=== PATIENT | male | born 1945 | race Caucasian/White ===

== ENCOUNTER 2016-11-29 13:49 | Inpatient (IN) | payer OTHER, MEDICARE ==
[~2016-11-29] VITALS: Ht 195.6 cm; Wt 145.2 kg
--- NOTE | 2016-11-29 13:54 | NUR ---
PER PT DIARRHEA ALL NIGHT DWAIN AFTER EATING UNCOOKED PAROIGES, DIARRHEA ALL NIGHT, SAT ABLE TO EAT SOME EGGS MASHED POTATOES BUT CONT TO FEEL WEAK AND DIZZY, TODAY KELLY PO GATORADE BUT STILL DIZZY, NO FURTHER DIARRHEA
--- NOTE | 2016-11-29 13:57 | NUR ---
PT RESTING ON STRETCHER, FAMILY REMAINS AT BEDSIDE. AWAITING PROVIDER EVAL.
--- NOTE | 2016-11-29 14:22 | NUR ---
BLOODWORK, BLUE,CHAPMAN,LAV,SST, AND PINK TOP TUBES SENT TO LAB.
[2016-11-29 14:27] LABS: ABSOLUTE BASOPHIL COUNT 0.1 /CUMM (0.0-0.2); ABSOLUTE EOSINOPHIL COUNT 0.1 /CUMM (0.0-0.7); ABSOLUTE GRANULOCYTE CT 7.5 /CUMM (1.4-6.5); ABSOLUTE LYMPH COUNT 1.8 /CUMM (1.2-3.4); ABSOLUTE MONOCYTE COUNT 0.7 /CUMM (0.10-0.60); BASOPHIL % 0.7 % (0.0-2.0); EOSINOPHIL % 0.6 % (0-5); GRANULOCYTE % 73.9 % (42.2-75.2); HEMATOCRIT 25.1 % (42-52); MEAN CORPUSCULAR HGB 29.1 PG (27.0-31.0); MEAN CORPUSCULAR HGB CONC 32.9 G/DL (33.0-37.0); MEAN CORPUSCULAR VOLUME 88.4 FL (80.0-94.0); MEAN PLATELET VOLUME 8.5 FL (7.4-10.4); PLATELET COUNT 282 /CUMM (130-400); RBC DISTRIBUTION WIDTH 15.3 % (11.5-14.5); RED BLOOD CELL CT 2.84 /CUMM (4.70-6.10); WHITE BLOOD CELL COUNT 10.1 /CUMM (4.8-10.8)
--- NOTE | 2016-11-29 14:41 | NUR ---
DR LEIVA IN TO EVAL AT THIS TIME.
--- NOTE | 2016-11-29 14:56 | NUR ---
DR LEIVA IN TO SPEAK WITH PT AND FAMILY, PLAN TO ADMIT. IV PROTONIX 40MG INFUSING WITHOUT DIFFICULTY AT THIS TIME.
[2016-11-29] MEDS ORDERED: LISINOPRIL-HCT1 EACH PO (15:02)
[2016-11-29] MEDS ORDERED: LEVOTHYROXINE112 MCG PO (15:03)
[2016-11-29] MEDS ORDERED: COLACE100 M1 PO (15:03)
[2016-11-29] MEDS ORDERED: ASPIRIN81 M4 PO (15:04)
[2016-11-29] MEDS ORDERED: CIALIS20 M1 PO (15:04)
--- NOTE | 2016-11-29 15:04 | ED GI/GU/ABDOMINAL COMPLAINT ---
History of Present Illness General Chief Complaint: General Adult Stated Complaint: DIARRHEA Source: patient, family, old records Exam Limitations: no limitations Vital Signs & Intake/Output Vital Signs & Intake/Output Vital Signs Date Time Temp Pulse Resp B/P Pulse O2 O2 Flow FiO2 Ox Delivery Rate 11/29 1456 97.0 103 20 127/60 11/29 1423 97 Room Air Room Air 11/29 1355 97.7 113 22 126/66 97 Room Air Allergies Coded Allergies: No Known Allergies (11/29/16) Reconcile Medications Acetaminophen (Tylenol Extra Strength) 500 MG TABLET 2 TAB PO QPMP PRN PAIN ( Reported) Aspirin (Aspirin*) 81 MG TAB.CHEW 1 TAB PO DAILY HEART HEALTH (Reported) Docusate Sodium (Colace) 100 MG CAPSULE 2 CAP PO BID CONSTIPATION (Reported) Levothyroxine Sodium 112 MCG TABLET 1 TAB PO DAILY AC THYROID (Reported) Lisinopril/Hydrochlorothiazide (Lisinopril-Hctz 20-12.5 MG Tab) 20 MG-12.5 MG TABLET 1 TAB PO DAILY HEART (Reported) Naproxen Sodium (Aleve) 220 MG TABLET 1 TAB PO DAILY PAIN (Reported) Tadalafil (Cialis) 20 MG TABLET 1 TAB PO DAILY PRN UNKNOWN (Reported) Triage Note: PER PT DIARRHEA ALL NIGHT WEDNESDAY AFTER EATING UNCOOKED PAROIGES, DIARRHEA ALL NIGHT, SAT ABLE TO EAT SOME EGGS MASHED POTATOES BUT CONT TO FEEL WEAK AND DIZZY, TODAY KELLY PO GATORADE BUT STILL DIZZY, NO FURTHER DIARRHEA Triage Nurses Notes Reviewed? yes Onset: 3 days Duration: day(s):, continues in ED, intermittent Timing: recent history Quality/Severity: moderate Radiation: no radiation Activities at Onset: eating Prior Abdominal Problems: none Past Sexual History: Unobtainable at this time No Modifying Factors: none Associated Symptoms: fatigue, loss of appetite, weakness HPI: 3 days prior to admission patient reports eating undercooked perogi and developed frequent loose watery black stool with decreased appetite increasing dizziness and fatigue. He denies fever chills nausea vomiting abdominal pain chest pain cough shortness breath headache dysuria rash. Past History Travel History Traveled to [place] past 21 day No Medical History Any Pertinent Medical History? see below for history Neurological: NONE EENT: NONE Cardiovascular: hypertension Respiratory: NONE Gastrointestinal: NONE Hepatic: NONE Renal: NONE Musculoskeletal: NONE Psychiatric: NONE Endocrine: NONE Surgical History Surgical History: non-contributory Psychosocial History Who do you live with Spouse Services at Home None What is your primary language Croatian Tobacco Use: Never used Family History Hx Contributory? No Review of Systems Review of Systems Constitutional: Reports: see HPI, weakness. EENTM: Reports: no symptoms. Respiratory: Reports: no symptoms. Cardiovascular: Reports: no symptoms. GI: Reports: see HPI, diarrhea, changes in stool. Genitourinary: Reports: no symptoms. Musculoskeletal: Reports: no symptoms. Skin: Reports: no symptoms. Neurological/Psychological: Reports: no symptoms. Hematologic/Endocrine: Reports: no symptoms. Immunologic/Allergic: Reports: no symptoms. All Other Systems: Reviewed and Negative Physical Exam Physical Exam General Appearance: well developed/nourished, alert, awake, anxious, moderate distress, obese Head: atraumatic, normal appearance Eyes: Bilateral: PERRL, EOMI, other (pale conjunctiva). Ears, Nose, Throat, Mouth: hearing grossly normal, dry mucous membrane Neck: normal inspection, supple, full range of motion, normal alignment Respiratory: normal breath sounds, chest non-tender, no respiratory distress, quiet respiration, lungs clear Cardiovascular: regular rate/rhythm, normal peripheral pulses, norml femoral pulses equa Peripheral Pulses: 4+ carotid (R), 4+ carotid (L) Gastrointestinal: normal bowel sounds, soft, non-tender, no organomegaly Rectal: deferred ( ), patient reports blood on wiping prior to admission Male Genitals: normal genitalia Back: normal inspection, normal range of motion Extremities: normal range of motion, no ligament instability Neurologic/Psych: no motor/sensory deficits, awake, alert, oriented x 3, normal gait, normal mood/affect, 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 No Severe Sepsis Present: No Septic Shock Present: No Progress Differential Diagnosis: gastritis, pancreatitis, PUD/GERD Plan of Care: Orders Procedure Date/time Status Nothing by Mouth 11/29 D Active Patient Data 11/29 1512 Active OXYGEN SETUP (GEN) 11/29 145 Active Saline Lock 11/29 1459 Active Admit to inpatient 11/29 1459 Active Add-on Test (ER Only) 11/29 1459 Active Vital Signs 11/29 1459 Active Activity/Ambulation 11/29 1459 Active EKG 11/29 1459 Active Code Status 11/29 1459 Active LEUKOCYTE POOR (PACKED CELLS) 11/29 1459 Active Intake & Output 11/29 1423 Active TROPONIN LEVEL 11/29 142 Complete TYPE & SCREEN (NOT X-MATCH) 11/29 1420 Active LIPASE 11/29 1418 Complete COMPREHENSIVE METABOLIC PANEL 11/29 141 Complete CBC WITHOUT DIFFERENTIAL 11/29 141 Complete AMYLASE 11/29 1418 Complete Laboratory Tests 11/29/16 1420: Anion Gap 12, Estimated GFR > 60, BUN/Creatinine Ratio 38.3 H, Glucose 118 H, Calcium 8.6, Total Bilirubin 0.3, AST 25, ALT 32, Alkaline Phosphatase 52, Troponin I < 0.01, Total Protein 6.0 L, Albumin 3.3 L, Globulin 2.7, Albumin/ Globulin Ratio 1.2, Amylase < 30 L, Lipase 108, CBC w Diff NO MAN DIFF REQ, RBC 2.84 L, MCV 88.4, MCH 29.1, RDW 15.3 H, MPV 8.5, Gran % 73.9, Lymphocytes % 17.4 L, Monocytes % 7.4, Eosinophils % 0.6, Basophils % 0.7, Absolute Granulocytes 7.5 H, Absolute Lymphocytes 1.8, Absolute Monocytes 0.7 H, Absolute Eosinophils 0.1, Absolute Basophils 0.1, PUBS MCHC 32.9 L Initial ED EKG: normal axis, normal intervals, normal p-waves, normal QRS complex, normal sinus rhythm, nonspecific ST T wave chg Prior EKG: unchanged Rhythm Strip: normal sinus rhythm Departure Departure Time of Disposition: 1504 Disposition: STILL A PATIENT Condition: Stable Clinical Impression Primary Impression: GI bleeding Qualifiers: GI bleed type/associated pathology: unspecified gastrointestinal hemorrhage type Qualified Code: K92.2 - Gastrointestinal hemorrhage, unspecified Secondary Impressions: Symptomatic anemia Referrals: GIGI DUMONT MD (PCP/Family) Departure Forms: Customer Survey General Discharge Information Admission Note Spoke With: IRENE SMITH MD Documentation of Exam: Documentation of any treatments & extenuating circumstances including Concerns Regarding Discharge (functional status, medication knowledge or non-compliance, living conditions, etc.) that warrant an admission rather than observation: Serial lab exam transfusion packed red blood cell medication adjustment GI evaluation continuing care discharge planning
[2016-11-29] MEDS ORDERED: ALEVE220 M2 PO (15:05)
[2016-11-29] MEDS ORDERED: TYLENOL EXTRA500 M2 PO (15:05)
--- NOTE | 2016-11-29 15:19 | History & Physical ---
[facility] 11/29/16 1519: General Information and HPI MD Statement: I have seen and personally examined JAYJAY RICHARDSON and documented this H&P. The patient is a 71 year old M who presented with a patient stated chief complaint of [abdominal pain, dark stools, dizziness ]. Source of Information: patient, family Exam Limitations: no limitations History of Present Illness: Mr Richardson is a 71-year-old gentleman with a PMH of hypothyroidism, hypertension, erectile dysfunction, chronic back pain who presents with complaints of abdominal discomfort, loose dark tarry stools and associated dizziness. He reports that he ate perogies on evening that he had in the freezer for a few months. Family member did mention possibly were undercooked after he commented on how the dough tasted. He woke up on Wednesday morning with noticeable abdominal cramping/bloating with a sensation of diarrhea. He had approximately 5 episodes of loose black tarry stool on Wednesday with associated dizziness. Over the weekend he was able to tolerate a regular diet with intermittent episodes of abdominal cramping/bloating. He did have 2 other bowel movements on Wednesday evening with formed stool that was black in color. He reports exertional dyspnea with walking a few steps, associated palpitations, intermittent episodes of dizziness and also appeared to be much more pale than usual. He denies any fevers, chills, nausea, vomiting, chest pain, sick contacts or recent travel. Previous colonoscopy on 06/29/[address] Kolb showed 2 small nonbleeding telangiectasia. Follows up with his PCP Dr. Dumont. He denies any increased use of NSAIDs for his low back pain. Allergies/Medications Allergies: Coded Allergies: No Known Allergies (11/29/16) Home Med list Acetaminophen (Tylenol Extra Strength) 500 MG TABLET 2 TAB PO QPMP PRN PAIN ( Reported) Aspirin (Aspirin*) 81 MG TAB.CHEW 1 TAB PO DAILY HEART HEALTH (Reported) Docusate Sodium (Colace) 100 MG CAPSULE 2 CAP PO BID CONSTIPATION (Reported) Levothyroxine Sodium 112 MCG TABLET 1 TAB PO DAILY AC THYROID (Reported) Lisinopril/Hydrochlorothiazide (Lisinopril-Hctz 20-12.5 MG Tab) 20 MG-12.5 MG TABLET 1 TAB PO DAILY HEART (Reported) Naproxen Sodium (Aleve) 220 MG TABLET 1 TAB PO DAILY PAIN (Reported) Tadalafil (Cialis) 20 MG TABLET 1 TAB PO DAILY PRN UNKNOWN (Reported) Past History Travel History Traveled to [place] past 21 day No Medical History Neurological: NONE EENT: NONE Cardiovascular: hypertension Respiratory: NONE Gastrointestinal: NONE Hepatic: NONE Renal: NONE Musculoskeletal: NONE Psychiatric: NONE Endocrine: NONE Surgical History Surgical History: L knee arthroplasty Past Family/Social History Psychosocial History Services at Home: None Sexual History Past Sexual History Unobtainable at this time Review of Systems Review of Systems Constitutional: Reports: see HPI. EENTM: Reports: no symptoms. Cardiovascular: Reports: see HPI. Respiratory: Reports: see HPI. GI: Reports: see HPI. Genitourinary: Reports: no symptoms. Musculoskeletal: Reports: see HPI. Skin: Reports: no symptoms. Neurological/Psychological: Reports: see HPI. Hematologic/Endocrine: Reports: see HPI. Exam & Diagnostic Data Last 24 Hrs of Vital Signs/I&O Vital Signs Date Time Temp Pulse Resp B/P Pulse O2 O2 Flow FiO2 Ox Delivery Rate 11/29 1456 97.0 103 20 127/60 11/29 1423 97 Room Air Room Air 11/29 1355 97.7 113 22 126/66 97 Room Air Intake & Output 11/29 1600 11/29 0800 11/29 0000 Intake Total 2000 Output Total Balance 2000 Intake, IV 2000 Patient 320 lb Weight Physical Exam General Appearance Alert, Cooperative, No Acute Distress Skin No Significant Lesion HEENT EOMI, Mucous Membr. moist/pink, Pale conjunctiva Cardiovascular Regular Rate, Normal S1, Normal S2, Mild tachycardia Lungs Clear to Auscultation, Normal Air Movement Abdomen Normal Bowel Sounds, Soft, Mild tenderness to palpation of the LLQ Neurological Normal Speech, Strength at 5/5 X4 Ext, Normal Tone, Sensation Intact Extremities No Edema, Normal Pulses Vascular Pulses Symmetrical Last 24 Hrs of Labs/Colin: Laboratory Tests 11/29/16 1420: Anion Gap 12, Estimated GFR > 60, BUN/Creatinine Ratio 38.3 H, Glucose 118 H, Calcium 8.6, Total Bilirubin 0.3, AST 25, ALT 32, Alkaline Phosphatase 52, Troponin I < 0.01, Total Protein 6.0 L, Albumin 3.3 L, Globulin 2.7, Albumin/ Globulin Ratio 1.2, Amylase < 30 L, Lipase 108, CBC w Diff NO MAN DIFF REQ, RBC 2.84 L, MCV 88.4, MCH 29.1, RDW 15.3 H, MPV 8.5, Gran % 73.9, Lymphocytes % 17.4 L, Monocytes % 7.4, Eosinophils % 0.6, Basophils % 0.7, Absolute Granulocytes 7.5 H, Absolute Lymphocytes 1.8, Absolute Monocytes 0.7 H, Absolute Eosinophils 0.1, Absolute Basophils 0.1, PUBS MCHC 32.9 L Microbiology 11/29 161 STOOL: Cryptosporidium Antigen - ORD 11/29 161 STOOL: Giardia Antigen (COLIN) - ORD 11/29 161 STOOL: Clostridium difficile Toxin A & B - ORD 11/29 161 STOOL: Vibrio Culture - ORD 11/29 161 STOOL: Yersinia Culture - ORD Diagnostic Data EKG Results Sinus tachycardia, HR 103. OR 184. QTc 456 Assessment/Plan Assessment: 71-year-old gentleman with a PMH of hypothyroidism, hypertension, erectile dysfunction, chronic back pain who presents with complaints of abdominal discomfort, loose dark tarry stools and associated dizziness. He reports that he ate perogies on evening that he had in the freezer for a few months. Family member did mention possibly were undercooked after he commented on how the dough tasted. He woke up on Wednesday morning with noticeable abdominal cramping/bloating with a sensation of diarrhea. He had approximately 5 episodes of loose black tarry stool on Wednesday with associated dizziness. Over the weekend he was able to tolerate a regular diet with intermittent episodes of abdominal cramping/bloating. He did have 2 other bowel movements on Wednesday evening with formed stool that was black in color. VS on admission: BP 126/66, HR 113, RR 22, SPO2 97% on RA, T 97.7 Pertinent Labs: H&H 8.3/25.1, sodium 138, potassium 4.0, BUN 23/0.6, glucose 118 Problem list: 1. GI bleed 2. Anemia 3. SIRS criteria 4. Hypertension: Currently orthostatic positive 5. Hypothyroidism 6. Erectile dysfunction Plan: * Admit to general medicine * Consult with GI for possible endoscopy/colonoscopy * NPO, type and screen, transfuse in the setting of symptomatic anemia * We'll await GI recommendations for whether to advance diet versus prep with plan for scope * IV PPI 40 mg twice a day * SIRS criteria: HR 113, RR 22. Likely secondary to GI blood loss. * Follow-up stool studies for ova and parasite in the setting of recent undercooked perogies. Will have lab stain for Shigella and hemorrhagic Escherichia coli * If patient does spike fever, would consider ceftriaxone and metronidazole and ID consult * Follow-up lactic acid. If worsening symptoms and elevation are lactic acid is a 60 abdomen pelvis with IV contrast * Follow-up INR * We'll hold antihypertensives until hemodynamically stable * Transition to IV levothyroxine in the a.m, levothyroxine 0.056 g, half normal home dose * Positive orthostatics: Supine 116/66, HR 15. Seated 90/51, HR 112. Check orthostatics tomorrow morning after transfusion * DVT prophylaxis: ALPs in the setting of GI bleed * CODE STATUS: Full code As Ranked By This Provider Problem List: 1. GI bleeding Qualifiers GI bleed type/associated pathology: unspecified gastrointestinal hemorrhage type Qualified Code: K92.2 - Gastrointestinal hemorrhage, unspecified 2. Symptomatic anemia 3. Hypertension 4. Hypothyroidism 5. Back pain 6. Orthostatic hypotension Core Measures/Miscellaneous Acute Coronary Syndrome ACS Diagnosis: No Cerebrovascular Accident CVA/TIA Diagnosis: No Congestive Heart Failure CHF Diagnosis: No Venous Thromboembolism VTE Risk Factors: Age > 40 [facility] prophylaxis d/t: No contraindications No VTE Pharm Prophylaxis d/t: Active bleeding VTE Diagnosis: No VTE Type: NONE VTE Confirmed by (Test): NONE Severe Sepsis Severe Sepsis Present: No Septic Shock Septic Shock Present: No Miscellaneous Documentation Attending Case Discussed With: IRENE SMITH MD Primary Care Physician: GIGI DUMONT MD Patient sees these Specialists Dr Kolb (GI) Level of Patient Care: General Medicine Resident Review Statement Resident Statement: examined this patient, discussed with application support intern, agreed with application support intern, discussed with family, reviewed EMR data (avail), discussed with nursing , reviewed images IRENE SMITH MD 11/29/16 2003: Attending Review Statement Attending Statement Attending Statement: examined this patient, discuss w/resident/PA/[employer], agreed w/resident/PA/[employer], reviewed EMR data (avail) Attending Assessment/Plan: 71M PMH HTN, hypothyroidism, chronic back pain presenting with 3 days of dark stools with melena after eating undercooked pierogies on 11/26. Patient feels abdominal cramping and has had loose stools that were dark and sticky. He also feels fatigued, dyspnea on exertion, and appears pale. Hgb 8.3, unknown baseline. Stable vitals. 1. Upper GI bleed 2. Symptomatic anemia 3. Diarrhea Plan - Admit to general medicine - Protonix 40mg IV BID - NPO - Monitor CBC q6h - GI consult - Transfuse to Hgb >8 - Stool culture sent - Hold anti-hypertensives - ALPS for DVT PPx
--- NOTE | 2016-11-29 15:21 | NUR ---
PT CARE ASSUMED BY THIS RN AT THIS TIME. NS BOLUS AND PROTONIX FINISHED. PT UPDATED ON POC, OFFERS NO COMPLAINTS AT THIS TIME.
--- NOTE | 2016-11-29 16:10 | NUR ---
PT ASSINGED TO 224-2
--- NOTE | 2016-11-29 16:40 | NUR ---
PER BLOOD BANK TYPE AND SCREEN NEEDED TO BE SPUN TWICE DUW TO ANTIBODIES. RESULTS WILL BE READY IN THE NEXT 15 MINUTES. LAB AWARE THAT PT IS BEING TRANFERRED TO [facility] FLOOR.
--- NOTE | 2016-11-29 16:42 | NUR ---
REPORT GIVEN TO [facility]. [facility]RIBUTION CALLED FOR PT TRANSPORT.
--- NOTE | 2016-11-29 16:47 | NUR ---
PER MD [facility] AND NURSING LOSS PREVENTION/SAFETY DISTRICT MANAGER PT IS CLEARED FOR GEN MED TRANSFER. PT AGREEABLE TO POC.
[2016-11-29 17:30] VITALS: BP 127/70
--- NOTE | 2016-11-29 18:33 | NUR ---
PT ARRIVED TO FLOOR VIA STRETCHER AT 1715 ACCOMPAINED BY FAMILY. REPORT TAKEN FROM JUICE IN ER. PT A&O, VSS. ORIENTED TO ROOM AND CALL RUSSELL. WILL MONITOR.
--- NOTE | 2016-11-29 19:04 | Cons- Gastroenterology ---
See Addendum General Information and HPI Consulting Request Date of Consult: 11/29/16 Requested By: IRENE SMITH MD Reason for Consult: I was notified this evening of a request by the hospitalist service for a GI consult to assess symptomatic anemia and "melena", in coverage for Dr. Emily Kolb. (*No rectal exam was done on admission - I just did one 11/29/16: dark brown, OB+ stool) Source of Information: patient, old records Exam Limitations: no limitations History of Present Illness: 71-year-old male, HTN/hypoT4/ED/DJD/BL knee total arthroplasty/prostatectomy at [facility] 2012 for prostate Ca (*w/o RT or hormonal tx)/lap CCKY 04/13/02, post 06/29: screening colonoscopy to [facility] per Dr. Emily Kolb- sigmoid diverticula & non- bleeding rectal telangiectasia, left intact (follow up colonoscopy advised x 10 years)/BL IH repair at [facility] 01/2016, who presented to the [facility] 11/29/2016 at 1:49 PM, complaining of dark tarry diarrhea x 5 on 11/27/2016, after eating some uncooked pierogies the night before. There was some associated dizziness, without LOC. The stools became formed on 11/28/2016, although they remained dark in color. There has been no recurrent diarrhea. He noticed some dyspnea on exertion with a few steps, with some associated palpitations. There was no chest pain. He denied any fevers, chills, nausea, vomiting, sick contacts, or recent travel. He denied any weight loss or change in appetite. He was on baby aspirin 81 mg daily and Aleve (Naproxen) 1 tab daily since 02/2017, for chronic low back pain & DJD. The patient claims he had a remote EGD in the , which was "negative" (unsure as to by whom). He denied any history of PUD. He did not take any Fe or Pepto Bismol, regarding the dark stool. He denied any GERD, hematemesis, or early satiety. There was no constipation, obstipation, change in stool caliber, tenesmus, or BRBPR. He tolerated mashed potatoes and eggs on 11/28/2016, had not eaten at all on Wednesday11/29/2016. He had some vague mild infraumbilical pain, which was localized in nature, and is mostly gone. Otherwise, he had no additional GI symptoms. He does not smoke or consume alcohol. He remotely smoked cigars, stopped in 1988, but never cigarettes. He denied any history of AAA. He denied any history of IA or CVA, regarding ASA use. There is no family history of GI disease, GI malignancy, or inherited liver disease. Although the diarrhea had stopped over 24 hours [employer], the patient called the ambulance from home on 11/29/2016, complaining of fatigue, and was brought to the [facility]. Upon arrival to the ER, BP 109/56, p 121, R 18, O2 sat RA 97%, T 97. *He was orthostatic by BP. The patient received IV normal saline in the ER with improvement of his BP, as well as IV Protonix 40 mg. He was found to have symptomatic anemia (see labs) & was transfused 1 u PRBC. *Baseline Hgb was usually in the 11-12 range, last documented in [employer] computer in 06/2009, with last BUN/Cr 14/0.8, on 01/31/2016. *No rectal exam was done on admission - I just did one 11/29/16: dark brown, OB+ stool). The patient had never been transfused [employer]. He is currently in the midst of his first unit PRBC. 11/29/2016: Admission labs at 2:20 p.m.- WBC 10.1 (74% gran/7.5 gran Ab), H/H 8.3/25.1, MCV 88.4, RDW 15.3, PLT 282, glucose 118. BUN/Cr 23/0.6, normal electrolytes with K+ 4.0, Ca2+ 8.6, HCO3 22, AG 12, normal amylase/lipase < 30/ 108, albumin 3.3, globulin 2.7, TBil 0.3, alk phos 52, AST 25, ALT 32, troponin < .01. 11/29/2016: EKG- ST @ 103, normal axis, early transition, NSST flattening. Allergies/Medications Allergies: Coded Allergies: No Known Allergies (11/29/16) Home Med List: Acetaminophen (Tylenol Extra Strength) 500 MG TABLET 2 TAB PO QPMP PRN PAIN ( Reported) Aspirin (Aspirin*) 81 MG TAB.CHEW 1 TAB PO DAILY HEART HEALTH (Reported) Docusate Sodium (Colace) 100 MG CAPSULE 2 CAP PO BID CONSTIPATION (Reported) Levothyroxine Sodium 112 MCG TABLET 1 TAB PO DAILY AC THYROID (Reported) Lisinopril/Hydrochlorothiazide (Lisinopril-Hctz 20-12.5 MG Tab) 20 MG-12.5 MG TABLET 1 TAB PO DAILY HEART (Reported) Naproxen Sodium (Aleve) 220 MG TABLET 1 TAB PO DAILY PAIN (Reported) Tadalafil (Cialis) 20 MG TABLET 1 TAB PO DAILY PRN UNKNOWN (Reported) Current Medications: Current Medications Sig/Shahid Start time Last Medication Dose Route Stop Time Status Admin Acetaminophen 650 MG Q6P PRN 11/29 1615 AC PO Levothyroxine Sodium 0.112 MG DAILY AC 11/30 0700 AC PO Oxycodone/ 1 TAB Q6P PRN 11/29 1615 AC Acetaminophen PO Oxycodone/ 2 TAB Q6P PRN 11/29 1615 AC Acetaminophen PO Pantoprazole Sodium 40 MG BID 11/29 2200 AC IV Pantoprazole Sodium 40 MG ONCE ONE 11/29 1500 DC 11/29 IV 11/29 1501 1500 Pantoprazole Sodium 0 .STK-MED ONE 11/29 1453 DC IV Patient Medication 1 UNIT ONE NR 11/29 1630 MA Teaching ED 11/29 1700 Polyethylene Glycol 1 GAL ONCE ONE 11/29 2014 UNVr PO 11/30 2015 Sodium Chloride 1,000 ML BOLUS ONE 11/29 1430 DC 11/29 IV 11/29 1529 1426 Past History Travel History Traveled to [place] past 21 day No Medical History Blood Transfusion Hx: No (not before 11/29/16) Neurological: NONE EENT: NONE Cardiovascular: hypertension Respiratory: NONE Gastrointestinal: diverticulosis coli Hepatic: post CCKY Renal: NONE Musculoskeletal: chronic back pain, osteoarthritis Psychiatric: NONE Endocrine: hypothyroidism Blood Disorders: NONE Cancer(s): prostate cancer (2012: prostatectomy w/o adj tx) 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 FATHER, , Age 86; Cause: Myocardial infarction. Psychosocial History Where Do You Live? Home Who Do You Live With? self Services at Home: None Primary Language: Burundian Smoking Status: Former Smoker (cigars, stopped 1988) ETOH Use: denies use Illicit Drug Use: denies illicit drug use Living Will? no Power of Curriculum Writer/HCP? no Other Social History: since 06/06/15. Lives alone. No children. 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 Ex-cigar smoker, stopped 1988. No alcohol or drugs. Functional Ability ADLs Independent: dressing, eating, toileting, bathing. Ambulation: independent IADLs Independent: shopping, housework, finances, food prep, telephone, transportation , medication admin. Employment History Employment: Employed Profession/Employer: [employer] Review of Systems Review of Systems: Full 14 point review of systems otherwise noncontributory, and as above. Review of Systems Constitutional: Reports: weakness. Denies: chills, diaphoresis, fever, malaise, unexplained weight loss. EENTM: Denies: blurred vision, double vision, visual changes, eye pain, eye drainage, eye tearing, icterus, ear discharge, ear pain, ear redness, hearing changes, nasal congestion, epistaxis, nasal pain, throat pain, throat swelling, mouth pain, tooth pain. Cardiovascular: Denies: chest pain, edema, orthopena, palpitations, peripheral edema, syncope. Respiratory: Reports: short of breath (SHEPHERD). Denies: cough, hemoptysis, orthopnea, sputum production, stridor, wheezing. GI: Reports: diarrhea (resolved > 1 day [employer]), melena (dark brown, OB+ stool on exam) . Denies: abdominal pain, bloating, constipation, distention, bowel incontinence, nausea, bloody stool, changes in stool, vomiting, steatorrhea. Genitourinary: Denies: discharge, dysuria, frequency, hematuria, hesitation, nocturia, pain, urgency. Musculoskeletal: Reports: back pain (chronic low back pain), joint pain (DJD). Denies: gout, joint swelling, muscle pain, muscle stiffness, neck pain. Skin: Denies: cysts, change in skin color, change in hair/nails, dryness, erythema, jaundice, lesions, lymphangitis, lumps, moles, rash. Neurological/Psychological: Reports: weakness. Denies: anxiety, ataxia, cognitive dysfunction, confusion, depressed, dementia, emotional problems, headache, numbness, paresthesia, pre- existing deficit, petit mal seizures, tingling, tremors, tonic-clonic seizures, unable to move lower ext, unable to move upper ext. Hematologic/Endocrine: Denies: bruising, bleeding, polyuria, polydipsia. Immunologic/Allergic: Denies: splenectomy, HIV/AIDS, lymphadenopathy. All Other Systems: Reviewed and Negative Exam & Diagnostic Data Vital Signs and I&O Vital Signs Date Time Temp Pulse Resp B/P Pulse O2 O2 Flow FiO2 Ox Delivery Rate 11/29 1730 98.7 103 20 127/70 99 Room Air 11/29 1644 97.0 121 18 109/56 97 Room Air Room Air 11/29 1456 97.0 103 20 127/60 03/ 1423 97 Room Air Room Air 11/29 1355 97.7 113 22 126/66 97 Room Air Intake & Output 11/29 1600 11/29 0400 11/28 1600 11/28 0400 11/27 1600 11/27 0400 Intake Total 2000 Output Total Balance 2000 Intake, IV 2000 Patient 320 lb Weight Physical Exam: Well-developed, well-nourished, slightly obese, pale male in no apparent distress. Sclera anicteric. Conjunctiva pale. Oropharynx clear. No oral thrush. No aphthous ulcers. There is no adenopathy, thyromegaly, or JVD. No peripheral stigmata of inflammatory bowel disease or chronic liver disease on exam. No spiders on the anterior chest. No gynecomastia. No CVA tenderness. No point spine tenderness. Lungs: clear to A&P. Heart exam: borderline tachycardic, regular rate rhythm, S1 and S2, without any murmur. Abdominal exam : normal bowel sounds, soft belly, nontender, without guarding or rebound. No mass. No organomegaly. Multiple well-healed port sites. No fluid shift. No pulsatile mass. No epigastric bruit. Digital rectal exam: done by myself on : dark brown stool, OB-positive, without melena or BRBPR. Smooth prostate. No nodule. No mass. Normal sphincter tone. No external hemorrhoids. No fissure. Extremities: without C, C, or E. No palpable cords. Scars post B/L total knee arthroplasty. + DJD. No rash. No palmar erythema. No Dupuytren's contractures. Distal pulses 2+ bilaterally. DTRs 2+ bilaterally. Left handed. Alert and oriented x 3. No tremor. No asterixis. Results Pertinent Lab Results: Laboratory Tests 11/29 1420 Chemistry Sodium (137 - 145 mmol/L) 138 Potassium (3.5 - 5.1 mmol/L) 4.0 Chloride (98 - 107 mmol/L) 105 Carbon Dioxide (22 - 30 mmol/L) 22 Anion Gap (5 - 16) 12 BUN (9 - 20 mg/dL) 23 H Creatinine (0.7 - 1.2 mg/dL) 0.6 L Estimated GFR (>60 ml/min) > 60 BUN/Creatinine Ratio (7 - 25 %) 38.3 H Glucose (65 - 99 mg/dL) 118 H Calcium (8.4 - 10.2 mg/dL) 8.6 Total Bilirubin (0.2 - 1.3 mg/dL) 0.3 AST (17 - 59 U/L) 25 ALT (21 - 72 U/L) 32 Alkaline Phosphatase (< 127 U/L) 52 Troponin I (<0.11 ng/ml) < 0.01 Total Protein (6.3 - 8.2 g/dL) 6.0 L Albumin (3.5 - 5.0 g/dL) 3.3 L Globulin (1.9 - 4.2 gm/dL) 2.7 Albumin/Globulin Ratio (1.1 - 2.2 %) 1.2 Amylase (30 - 110 U/L) < 30 L Lipase (23 - 300 U/L) 108 Hematology CBC w Diff NO MAN DIFF REQ WBC (4.8 - 10.8 /CUMM) 10.1 RBC (4.70 - 6.10 /CUMM) 2.84 L Hgb (14.0 - 18.0 G/DL) 8.3 L Hct (42 - 52 %) 25.1 L MCV (80.0 - 94.0 FL) 88.4 MCH (27.0 - 31.0 PG) 29.1 RDW (11.5 - 14.5 %) 15.3 H Plt Count (130 - 400 /CUMM) 282 MPV (7.4 - 10.4 FL) 8.5 Gran % (42.2 - 75.2 %) 73.9 Lymphocytes % (20.5 - 51.1 %) 17.4 L Monocytes % (1.7 - 9.3 %) 7.4 Eosinophils % (0 - 5 %) 0.6 Basophils % (0.0 - 2.0 %) 0.7 Absolute Granulocytes (1.4 - 6.5 /CUMM) 7.5 H Absolute Lymphocytes (1.2 - 3.4 /CUMM) 1.8 Absolute Monocytes (0.10 - 0.60 /CUMM) 0.7 H Absolute Eosinophils (0.0 - 0.7 /CUMM) 0.1 Absolute Basophils (0.0 - 0.2 /CUMM) 0.1 PUBS MCHC (33.0 - 37.0 G/DL) 32.9 L Imaging/Other Studies: 11/29/2016: EKG- ST @ 103, normal axis, early transition, NSST flattening. [No imaging studies obtained on admission]. Assessment/Plan Assessment/Recommendations: 71-year-old male, HTN/hypoT4/ED/DJD/BL knee total arthroplasty/prostatectomy at [facility] 2012 for prostate Ca (*w/o RT or hormonal tx)/lap CCKY 04/13/02, post 06/29: screening colonoscopy to [facility] per Dr. Emily Kolb- sigmoid diverticula & non- bleeding rectal telangiectasias, left intact (follow up colonoscopy advised x 10 years)/BL IH repair at [facility] 01/2016, who presented to the [facility] 11/29/2016 at 1:49 PM, complaining of dark tarry diarrhea x 5 on 11/27/2016, after eating some uncooked pierogies the night before. There was some associated dizziness, without LOC. The stools became formed on 11/28/2016, although they remained dark in color. There has been no recurrent diarrhea. He noticed some dyspnea on exertion with a few steps, with some associated palpitations. There was no chest pain. He denied any fevers, chills, nausea, vomiting, sick contacts, or recent travel. He denied any weight loss or change in appetite. He was on baby aspirin 81 mg daily and Aleve (Naproxen) 1 tab daily since 02/2017, for chronic low back pain & DJD. The patient claims he had a remote EGD in the , which was "negative" (unsure as to by whom). He denied any history of PUD. He did not take any Fe or Pepto Bismol, regarding the dark stool. He denied any GERD, hematemesis, or early satiety. There was no constipation, obstipation, change in stool caliber, tenesmus, or BRBPR. He tolerated mashed potatoes and eggs on 11/28/2016, had not eaten at all on Wednesday11/29/2016. He had some vague mild infraumbilical pain, which was localized in nature, and is mostly gone. Otherwise, he had no additional GI symptoms. He does not smoke or consume alcohol. He remotely smoked cigars, stopped in 1988, but never cigarettes. He denied any history of AAA. He denied any history of IA or CVA, regarding ASA use. There is no family history of GI disease, GI malignancy, or inherited liver disease. Although the diarrhea had stopped over 24 hours [employer], the patient called the ambulance from home on 11/29/2016, complaining of fatigue, and was brought to the [facility]. Upon arrival to the ER, BP 109/56, p 121, R 18, O2 sat RA 97%, T 97. *He was orthostatic by BP. The patient received IV normal saline in the ER with improvement of his BP, as well as IV Protonix 40 mg. He was found to have symptomatic anemia (see labs) & was transfused 1 u PRBC. *Baseline Hgb was usually in the 11-12 range, last documented in [employer] computer in 06/2009, with last BUN/Cr 14/0.8, on 01/31/2016. *No rectal exam was done on admission - I just did one 11/29/16: dark brown, OB+ stool). The patient had never been transfused [employer]. He is currently in the midst of his first unit PRBC. 11/29/2016: Admission labs at 2:20 p.m.- WBC 10.1 (74% gran/7.5 gran Ab), H/H 8.3/25.1, MCV 88.4, RDW 15.3, PLT 282, glucose 118. BUN/Cr 23/0.6, normal electrolytes with K+ 4.0, Ca2+ 8.6, HCO3 22, AG 12, normal amylase/lipase < 30/ 108, albumin 3.3, globulin 2.7, TBil 0.3, alk phos 52, AST 25, ALT 32, troponin < .01. 11/29/2016: EKG- ST @ 103, normal axis, early transition, NSST flattening. *The patient's diarrhea, which had resolved > 24 hours [employer], was probably from either a self-limited gastroenteritis or food poisoning. He was on baby aspirin and Aleve, regarding his dark stools. His BUN was mildly elevated. My digital rectal exam on admission 11/29/2016, showed dark brown, OB positive stool. Most likely, the above is an upper GI bleed, however the patient did have telangiectasias on his 06/29/2014: colonoscopy to the [facility], albeit rectal (there was no history of RT, as he had a prostatectomy for his prostate Ca in 2012), not cecal. Nevertheless, as his Hgb has dropped, I advised prepping him for both EGD & colonoscopy. A remote EGD in the was reportedly "normal." He is currently more stable after IV fluids & receiving his 1st unit PRBC, in view of his symptomatic anemia. Rule out peptic ulcer disease. Rule out NSAID gastropathy. Rule out angiodysplasia. Rule out UGI neoplasm. Rule out Dieulafoy lesion. There is nothing by history to suggest cirrhosis to warrant a consideration for varices. Doubt right-sided colon lesion, based on relatively recent colonoscopy. Clinically, he does not seem to have a colitis. SUGGEST: Clears po & 1 gallon GoLytely purge over 4-5 hours tonight, then NPO for EGD/ colonoscopy on Wednesday11/30/2016. Strict I/O's. Supplemental O2. 2 large bore IVs. Increase Protonix to 40 mg IV BID. Check CBC Q8h for now. Keep Hgb > 7. If the patient becomes hemodynamically unstable, call GI & move patient to the ICU. If diarrhea recurs (aside from prep), check stool for C&S, Shiga toxin & C. difficile. The risks and benefits of EGD/colonoscopy were discussed with the patient, and he agrees to proceed. Informed consent was obtained from him for EGD and colonoscopy. 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 Emily Kolb, or myself, depending on logistics. The patient was given our office number. The above was discussed with the medical house staff, the patient, & the patient's niece, Violette Laird, at the bedside, in detail, as per patient request. Further recommendations will follow, depending on clinical course. Problem List: 1. Symptomatic anemia 2. GI bleeding 3. Orthostatic hypotension 4. Diverticula of colon Copies To: LUIS NUÑEZ,IRENE; TIM NUÑEZ,GIGI Sampson; MICHAEL NUÑEZ,CHRISTOS Solomon; MARSHA NUÑEZ, CJ Cole. Consult Acknowledgment - Thank you for your consult request.
--- NOTE | 2016-11-29 20:07 | Admission Certification ---
Admission Certification Certification Statement - As attending physician, I certify that at the time of - admission, based on clinical presentation, severity of - symptoms, need for further diagnostic testing and - therapeutic interventions, and risk of adverse outcomes - without in-hospital treatment, in my clinical assessment, - this patient requires an acute hospital stay for a minimum - of two nights or longer. I have also considered psychsocial - factors such as support system, advanced age, financial - issues, cognitive issues, and failed out-patient treatments, - past re-admission history, safety of patient, and lack of - compliance as applicable. Specific rationale supporting this admission is: Acute upper GI bleed with symptomatic anemia
[2016-11-29 21:51] VITALS: BP 130/70
[2016-11-30 04:04] LABS: ABSOLUTE BASOPHIL COUNT 0.1 /CUMM (0.0-0.2); ABSOLUTE EOSINOPHIL COUNT 0.2 /CUMM (0.0-0.7); ABSOLUTE GRANULOCYTE CT 6.1 /CUMM (1.4-6.5); ABSOLUTE LYMPH COUNT 2.1 /CUMM (1.2-3.4); ABSOLUTE MONOCYTE COUNT 0.6 /CUMM (0.10-0.60); BASOPHIL % 0.7 % (0.0-2.0); EOSINOPHIL % 1.7 % (0-5); GRANULOCYTE % 67.3 % (42.2-75.2); HEMATOCRIT 26.9 % (42-52); MEAN CORPUSCULAR HGB 29.1 PG (27.0-31.0); MEAN CORPUSCULAR HGB CONC 33.3 G/DL (33.0-37.0); MEAN CORPUSCULAR VOLUME 87.5 FL (80.0-94.0); MEAN PLATELET VOLUME 8.8 FL (7.4-10.4); PLATELET COUNT 255 /CUMM (130-400); RED BLOOD CELL CT 3.08 /CUMM (4.70-6.10); WHITE BLOOD CELL COUNT 9.1 /CUMM (4.8-10.8)
[2016-11-30 04:06] LABS: PT 13.2 SEC (9.4-12.5)
[2016-11-30 06:33] VITALS: BP 114/70
--- NOTE | 2016-11-30 07:09 | PN- Housestaff ---
VENKAT NUÑEZ,[facility] 11/30/16 0709: Subjective Follow-up For: abdominal pain, dark stools, dizziness Subjective: I saw and examined the patient at bedside this am, he is comfortably lying in bed, has been doing the bowel prep for colonoscopy and feel his mouth and nose is dry as he has not been eating or drinking. Patient reports he has had back stools for a while and has been weak for months, since Wednesday he has been weaker. Patient reports dizziness, reports still having black tarry stool, denies chest pain or palpitation, SOB, abdominal pain or changes in the stool. Review of Systems Constitutional: Reports: weakness. Denies: chills, fever. EENTM: Reports: no symptoms. Cardiovascular: Denies: chest pain, palpitations. Respiratory: Reports: no symptoms. Gastrointestinal: Reports: diarrhea, melena, changes in stool. Denies: abdominal pain, bloating, bowel incontinence, nausea, bloody stool (tarry stool), vomiting. Genitourinary: Reports: no symptoms. Musculoskeletal: Reports: no symptoms. Skin: Reports: no symptoms. Neurological/Psychological: Reports: no symptoms. Hematologic/Endocrine: Reports: no symptoms. Objective Last 24 Hrs of Vital Signs/I&O Vital Signs Date Time Temp Pulse Resp B/P Pulse O2 O2 Flow FiO2 Ox Delivery Rate 11/30 0633 98.0 93 20 114/70 97 Room Air 11/29 2151 98.1 104 20 130/70 99 03/05 1730 98.7 103 20 127/70 99 Room Air / 1644 97.0 121 18 109/56 97 Room Air Room Air 11/29 1456 97.0 103 20 127/60 03/05 1423 97 Room Air Room Air / 1355 97.7 113 22 126/66 97 Room Air Intake & Output 11/30 0800 03/ 0000 11/29 1600 Intake Total 1000 2000 Output Total Balance 1000 2000 Intake, IV 700 2000 Intake, Oral 300 Patient 145.15 kg 145.15 kg Weight Physical Exam General Appearance: Alert, Oriented X3, Cooperative, No Acute Distress Skin: No Significant Lesion, pale HEENT: Atraumatic, EOMI Neck: Supple, No JVD Cardiovascular: Regular Rate, Normal S1, Normal S2, No Murmurs Lungs: Clear to Auscultation, Normal Air Movement Abdomen: Soft, No Tenderness Neurological: Normal Speech, Normal Tone Extremities: No Clubbing Vascular: Normal Pulses, Pulses Symmetrical Current Medications: Current Medications Sig/Shahid Start time Last Medication Dose Route Stop Time Status Admin Acetaminophen 650 MG Q6P PRN 11/29 1615 AC PO Dextrose/Sodium 1,000 ML ONCE ONE 11/30 0100 AC 11/30 Chloride IV 11/30 2059 0517 Levothyroxine Sodium 56 MCG DAILY 11/30 1000 AC IV Levothyroxine Sodium 0.112 MG DAILY AC 11/30 0700 CAN PO Levothyroxine Sodium 56 MCG DAILY AC 11/30 0700 DC IV Oxycodone/ 1 TAB Q6P PRN 11/29 161 AC Acetaminophen PO Oxycodone/ 2 TAB Q6P PRN 11/29 1615 AC Acetaminophen PO Pantoprazole Sodium 40 MG BID 11/29 2200 AC 11/29 IV 2134 Pantoprazole Sodium 40 MG ONCE ONE 11/29 1500 DC 11/29 IV 11/29 1501 1500 Pantoprazole Sodium 0 .STK-MED ONE 11/29 1453 DC IV Patient Medication 1 UNIT ONE NR 11/29 1630 DC Teaching ED 11/29 1700 Polyethylene Glycol 1 GAL ONCE ONE 11/29 2014 DC 11/29 PO 11/30 2015 2133 Sodium Chloride 1,000 ML BOLUS ONE 11/29 1430 DC 11/29 IV 11/29 1529 1426 Last 24 Hrs of Lab/Colin Results Last 24 Hrs of Labs/Mics: Laboratory Tests 11/30/16 0630: Sodium Pending, Potassium Pending, Chloride Pending, Carbon Dioxide Pending, Anion Gap Pending, BUN Pending, Creatinine Pending, BUN/Creatinine Ratio Pending 11/30/16 0600: CBC w Diff Cancelled, WBC Cancelled, RBC Cancelled, Hgb Cancelled, Hct Cancelled , MCV Cancelled, MCH Cancelled, RDW Cancelled, Plt Count Cancelled, MPV Cancelled, PUBS MCHC Cancelled 11/30/16 0325: Lactic Acid 1.5, PT 13.2 H, INR 1.26 H, CBC w Diff NO MAN DIFF REQ, RBC 3.08 L, MCV 87.5, MCH 29.1, RDW 15.0 H, MPV 8.8, Gran % 67.3, Lymphocytes % 23.2, Monocytes % 7.1, Eosinophils % 1.7, Basophils % 0.7, Absolute Granulocytes 6.1, Absolute Lymphocytes 2.1, Absolute Monocytes 0.6, Absolute Eosinophils 0.2, Absolute Basophils 0.1, PUBS MCHC 33.3 11/29/16 1616: Lactic Acid Cancelled 11/29/16 1420: Anion Gap 12, Estimated GFR > 60, BUN/Creatinine Ratio 38.3 H, Glucose 118 H, Calcium 8.6, Magnesium 2.0, Total Bilirubin 0.3, AST 25, ALT 32, Alkaline Phosphatase 52, Troponin I < 0.01, Total Protein 6.0 L, Albumin 3.3 L, Globulin 2.7, Albumin/Globulin Ratio 1.2, Amylase < 30 L, Lipase 108, CBC w Diff NO MAN DIFF REQ, RBC 2.84 L, MCV 88.4, MCH 29.1, RDW 15.3 H, MPV 8.5, Gran % 73.9, Lymphocytes % 17.4 L, Monocytes % 7.4, Eosinophils % 0.6, Basophils % 0.7, Absolute Granulocytes 7.5 H, Absolute Lymphocytes 1.8, Absolute Monocytes 0.7 H, Absolute Eosinophils 0.1, Absolute Basophils 0.1, PUBS MCHC 32.9 L Microbiology 11/29 161 STOOL: Cryptosporidium Antigen - COLB 11/29 161 STOOL: Giardia Antigen (COLIN) - COLB 11/29 161 STOOL: Clostridium difficile Toxin A & B - COLB 11/29 161 STOOL: Vibrio Culture - COLB 11/29 1614 STOOL: Yersinia Culture - COLB Assessment/Plan Assessment: 71-year-old gentleman with a PMH of hypothyroidism, hypertension, erectile dysfunction, chronic back pain who presents with complaints of abdominal discomfort, loose dark tarry stools and associated dizziness. He reports that he ate pierogi on evening that he had in the freezer for a few months. Family member did mention possibly were undercooked after he commented on how the dough tasted. He woke up on Wednesday morning with noticeable abdominal cramping/bloating with a sensation of diarrhea. He had approximately 5 episodes of loose black tarry stool on Wednesday with associated dizziness. Over the weekend he was able to tolerate a regular diet with intermittent episodes of abdominal cramping/bloating. He did have 2 other bowel movements on Wednesday evening with formed stool that was black in color. VS on admission: BP 126/66, HR 113, RR 22, SPO2 97% on RA, T 97.7 Pertinent Labs: H&H 8.3/25.1, sodium 138, potassium 4.0, BUN 23/0.6, glucose 118 Problem list and plan: Upper GI bleed, diarrhea Patient reports noticing black tarry stools for months now and worsening weakness. Upper and lower endoscopy was done today and reported a clear based gastric ulcer, biopsied 5. 2 cm hiatal hernia pouch. Mild left-sided diverticula. Moderate internal hemorrhoids, without any active bleeding. Normal colonic mucosa to the terminal ileum. Followed further GI recommendations. * f/u stool antigen for Hpylori * f/u biopsy results of the gastric ulcer * Follow-up stool studies for ova and parasite in the setting of recent undercooked pierogi. Also added stool stain for Shigella and hemorrhagic Escherichia coli, will follow up. Anemia Patient felt dizzy, had orthostats + yesterday, received 2 units of blood. H/H 8.3/25.1 on admission. lactic acid: 1.5. * repeat orthostats today * repeat CBC in am SIRS criteria on admission - resolved HR 113, RR 22. Likely secondary to GI blood loss. No fever, no leukocytosis, Cr : 0.6 HR 93, RR 20 after endoscopy, patient still reported tarry stools before colonoscopy. * If patient does spike fever, would consider ceftriaxone and metronidazole and ID consult Hypertension, orthostatic positive on admission Yesterday: Supine 116/66, HR 115. Seated 90/51, HR 112. Will check orthostatics again today. patient was transfused 2 units of pRBCs yesterday and currently denies dizziness. * repeat orthostats * monitor BP, anti-hypertensives on hold. Hypothyroidism * continue 56 microgram daily Diet: started on clear liquid and will advance as tolerated DVT prophylaxis: ALPs in the setting of GI bleed CODE STATUS: Full code Problem List: 1. GI bleeding 2. Symptomatic anemia 3. Hypothyroidism 4. Orthostatic hypotension Pain Ratin Pain Location: no pain Pain Goal: Pain 4 or less Pain Plan: mild pp Tomorrow's Labs & Rationales: CBC (anemia) RIKI ASHER MD 11/30/16 1617: Attending MD Review Statement Attending Statement Attending MD Statement: examined this patient, discuss w/resident/PA/AIRFRAME TECHNICAL OFFICER, agreed w/resident/PA/AIRFRAME TECHNICAL OFFICER, reviewed EMR data (avail), discussed with nursing, discussed with case mgmt, amended to note Attending Assessment/Plan: The patient was seen and discussed with house staff. Agree with the plan of care as outlined.
--- NOTE | 2016-11-30 07:50 | PN- Gastroenterology ---
Assessment/Plan Assessment/Recommendations: 71-year-old male, HTN/hypoT4/ED/DJD/BL knee total arthroplasty/prostatectomy at [facility] 2012 for prostate Ca (*w/o RT or hormonal tx)/lap [facility] 04/13/02, post 06/29: screening colonoscopy to [facility] per Dr. Emily Kolb- sigmoid diverticula & non- bleeding rectal telangiectasias, left intact (follow up colonoscopy advised x 10 years)/BL IH repair at [facility] 01/2016, who presented to the [place] ER 11/29/2016 at 1:49 PM, complaining of dark tarry diarrhea x 5 on 11/27/2016, after eating some uncooked pierogies the night before. There was some associated dizziness, without LOC. The stools became formed on 11/28/2016, although they remained dark in color. There has been no recurrent diarrhea. He noticed some dyspnea on exertion with a few steps, with some associated palpitations. There was no chest pain. He denied any fevers, chills, nausea, vomiting, sick contacts, or recent travel. He denied any weight loss or change in appetite. He was on baby aspirin 81 mg daily and Aleve (Naproxen) 1 tab daily since 02/2017, for chronic low back pain & DJD. The patient claims he had a remote EGD in the , which was "negative" (unsure as to by whom). He denied any history of PUD. He did not take any Fe or Pepto Bismol, regarding the dark stool. He denied any GERD, hematemesis, or early satiety. There was no constipation, obstipation, change in stool caliber, tenesmus, or BRBPR. He tolerated mashed potatoes and eggs on 11/28/2016, had not eaten at all on Wednesday11/29/2016. He had some vague mild infraumbilical pain, which was localized in nature, and is mostly gone. Otherwise, he had no additional GI symptoms. He does not smoke or consume alcohol. He remotely smoked cigars, stopped in 1988, but never cigarettes. He denied any history of AAA. He denied any history of NE or CVA, regarding ASA use. There is no family history of GI disease, GI malignancy, or inherited liver disease. Although the diarrhea had stopped over 24 hours TENANT RELATIONS COORDINATOR, the patient called the ambulance from home on 11/29/2016, complaining of fatigue, and was brought to the [place] ER. Upon arrival to the ER, BP 109/56, p 121, R 18, O2 sat RA 97%, T 97. *He was orthostatic by BP. The patient received IV normal saline in the ER with improvement of his BP, as well as IV Protonix 40 mg. He was found to have symptomatic anemia (see labs) & was transfused 1 u PRBC. *Baseline Hgb was usually in the 11-12 range, last documented in [employer] computer in 06/2009, with last BUN/Cr 14/0.8, on 01/31/2016. *No rectal exam was done on admission - I just did one 11/29/16: dark brown, OB+ stool). The patient had never been transfused TENANT RELATIONS COORDINATOR. He is currently in the midst of his first unit PRBC. 11/29/2016: Admission labs at 2:20 p.m.- WBC 10.1 (74% gran/7.5 gran Ab), H/H 8.3/25.1, MCV 88.4, RDW 15.3, PLT 282, glucose 118. BUN/Cr 23/0.6, normal electrolytes with K+ 4.0, Ca2+ 8.6, HCO3 22, AG 12, normal amylase/lipase < 30/ 108, albumin 3.3, globulin 2.7, TBil 0.3, alk phos 52, AST 25, ALT 32, troponin < .01. 11/29/2016: EKG- ST @ 103, normal axis, early transition, NSST flattening. *The patient's diarrhea, which had resolved > 24 hours TENANT RELATIONS COORDINATOR, was probably from either a self-limited gastroenteritis or food poisoning. He was on baby aspirin and Aleve, regarding his dark stools. His BUN was mildly elevated. My digital rectal exam on admission 11/29/2016, showed dark brown, OB positive stool. Most likely, the above is an upper GI bleed, however the patient did have telangiectasias on his 06/29/2014: colonoscopy to the [facility], albeit rectal (there was no history of RT, as he had a prostatectomy for his prostate Ca in 2012), not cecal. Nevertheless, as his Hgb has dropped, I advised prepping him for both EGD & colonoscopy. A remote EGD in the was reportedly "normal." He is currently more stable after IV fluids & receiving his 1st unit PRBC, in view of his symptomatic anemia. Rule out peptic ulcer disease. Rule out NSAID gastropathy. Rule out angiodysplasia. Rule out UGI neoplasm. Rule out Dieulafoy lesion. There is nothing by history to suggest cirrhosis to warrant a consideration for varices. Doubt right-sided colon lesion, based on relatively recent colonoscopy. Clinically, he does not seem to have a colitis. 11/30/2016: PT 13.2, INR 1.26 *As of 11/30/2016, the patient is hemodynamically stable after 2 units PRBC. He is no longer tachycardic. O2 sat RA 97%. He remains afebrile. He has only taken approximately 3/4 of the gallon of GoLytley, with dark brown liquid E fluent. There is no black or red content from below. There is no hematemesis. He denies any abdominal pain, nausea, vomiting, chest pain, or shortness of breath. He remains off aspirin and NSAIDs, & on Protonix 40 mg IV BID. *SUGGEST: Finish GoLytely by 10 AM today, then NPO for EGD/colonoscopy, later today on Wednesday11/30/2016. Strict I/O's. Supplemental O2, as needed. 2 large bore IVs. Continue Protonix 40 mg IV BID. Check CBC Q8h for now. Keep Hgb > 7. DVT prophylaxis with mechanical ALPS.*If the patient becomes hemodynamically unstable, call GI & move patient to the ICU. If diarrhea recurs (aside from prep), check stool for C&S, Shiga toxin & C. difficile. The risks and benefits of EGD/colonoscopy were discussed with the patient, and he agrees to proceed. Informed consent was obtained from him for EGD and colonoscopy. The patient's GI care will be assumed by either his usual vp hr diversity, Dr. Emily Kolb, or myself, depending on logistics. The patient was given our office number. The above was discussed with the patient & previously with the medical housestaff & the patient's niece, Violette Laird, at the bedside, in detail, on 11/29/2016, as per patient request. Further recommendations will follow, depending on clinical course. Problem List: 1. Symptomatic anemia 2. GI bleeding 3. Orthostatic hypotension 4. Diverticula of colon Subjective Subjective: 11/30/2016: PT 13.2, INR 1.26 *As of 11/30/2016, the patient is hemodynamically stable after 2 units PRBC. He is no longer tachycardic. O2 sat RA 97%. He remains afebrile. He has only taken approximately 3/4 of the gallon of GoLytley, with dark brown liquid E fluent. There is no black or red content from below. There is no hematemesis. He denies any abdominal pain, nausea, vomiting, chest pain, or shortness of breath. He remains off aspirin and NSAIDs, & on Protonix 40 mg IV BID. Review of Systems: Full 14 point review of systems otherwise noncontributory, and as above. Review of Systems Constitutional: Reports: weakness. Denies: chills, diaphoresis, fever, malaise, unexplained weight loss. EENTM: Denies: blurred vision, double vision, visual changes, eye pain, eye drainage, eye tearing, icterus, ear discharge, ear pain, ear redness, hearing changes, nasal congestion, epistaxis, nasal pain, throat pain, throat swelling, mouth pain, tooth pain. Cardiovascular: Denies: chest pain, edema, orthopena, palpitations, peripheral edema, syncope. Respiratory: Reports: short of breath (SHEPHERD)- improved. Denies: cough, hemoptysis, orthopnea, sputum production, stridor, wheezing. GI: Reports: diarrhea (resolved > 1 day TENANT RELATIONS COORDINATOR), history of "melena" (dark brown, OB+ stool on exam). Denies: abdominal pain, bloating, constipation, distention, bowel incontinence, nausea, bloody stool, changes in stool, vomiting, steatorrhea. Genitourinary: Denies: discharge, dysuria, frequency, hematuria, hesitation, nocturia, pain, urgency. Musculoskeletal: Reports: back pain (chronic low back pain), joint pain (DJD). Denies: gout, joint swelling, muscle pain, muscle stiffness, neck pain. Skin: Denies: cysts, change in skin color, change in hair/nails, dryness, erythema, jaundice, lesions, lymphangitis, lumps, moles, rash. Neurological/Psychological: Reports: weakness. Denies: anxiety, ataxia, cognitive dysfunction, confusion, depressed, dementia, emotional problems, headache, numbness, paresthesia, pre-existing deficit, petit mal seizures, tingling, tremors, tonic-clonic seizures, unable to move lower ext , unable to move upper ext. Hematologic/Endocrine: Denies: bruising, bleeding, polyuria, polydipsia. Immunologic/Allergic: Denies: splenectomy, HIV/AIDS, lymphadenopathy. All Other Systems: Reviewed and Negative Objective Vital Signs and I&Os Vital Signs Date Time Temp Pulse Resp B/P Pulse O2 O2 Flow FiO2 Ox Delivery Rate 11/30 0633 98.0 93 20 114/70 97 Room Air 11/29 2151 98.1 104 20 130/70 99 / 1730 98.7 103 20 127/70 99 Room Air / 1644 97.0 121 18 109/56 97 Room Air Room Air 11/29 1456 97.0 103 20 127/60 03/05 1423 97 Room Air Room Air 11/29 1355 97.7 113 22 126/66 97 Room Air Intake & Output 11/30 1600 11/30 0400 11/29 1600 11/29 0400 11/28 1600 11/28 0400 Intake Total 600 1000 2000 Output Total Balance 600 1000 2000 Intake, IV 305 266 2406 Intake, Oral 500 300 Number 14 Bowel Movements Patient 320 lb 320 lb Weight Physical Exam: Well-developed, well-nourished, slightly obese, (less) pale male, in no apparent distress. Sclera anicteric. Conjunctiva- less pale. Oropharynx clear. No oral thrush. No aphthous ulcers. There is no adenopathy, thyromegaly, or JVD. No peripheral stigmata of inflammatory bowel disease or chronic liver disease on exam. No spiders on the anterior chest. No gynecomastia. No CVA tenderness. No point spine tenderness. Lungs: clear to A&P. Heart exam: borderline tachycardic, regular rate rhythm, S1 and S2, without any murmur. Abdominal exam : normal bowel sounds, soft belly, nontender, without guarding or rebound. No mass. No organomegaly. Multiple well-healed port sites. No fluid shift. No pulsatile mass. No epigastric bruit. Digital rectal exam: done by myself on : dark brown stool, OB-positive, without melena or BRBPR. Smooth prostate. No nodule. No mass. Normal sphincter tone. No external hemorrhoids. No fissure. Extremities: without C, C, or E. No palpable cords. Scars post B/L total knee arthroplasty. + DJD. No rash. No palmar erythema. No Dupuytren's contractures. Distal pulses 2+ bilaterally. DTRs 2+ bilaterally. Left handed. Alert and oriented x 3. No tremor. No asterixis. Current Medications: Current Medications Sig/Shahid Start time Last Medication Dose Route Stop Time Status Admin Acetaminophen 650 MG Q6P PRN 11/29 1615 AC PO Dextrose/Sodium 1,000 ML ONCE ONE 11/30 0100 AC 11/30 Chloride IV 11/30 2058 0517 Levothyroxine Sodium 56 MCG DAILY 11/30 1000 AC IV Levothyroxine Sodium 0.112 MG DAILY AC 11/30 0700 CAN PO Levothyroxine Sodium 56 MCG DAILY AC 11/30 0700 DC IV Oxycodone/ 1 TAB Q6P PRN 11/29 1615 AC Acetaminophen PO Oxycodone/ 2 TAB Q6P PRN 11/29 1615 AC Acetaminophen PO Pantoprazole Sodium 40 MG BID 11/29 2200 AC 11/29 IV 2134 Pantoprazole Sodium 40 MG ONCE ONE 11/29 1500 DC 11/29 IV 11/29 1501 1500 Pantoprazole Sodium 0 .STK-MED ONE 11/29 1453 DC IV Patient Medication 1 UNIT ONE NR 11/29 1630 DC Teaching ED 11/29 1700 Polyethylene Glycol 1 GAL ONCE ONE 11/29 2014 DC 11/29 PO 11/29 2016 2133 Sodium Chloride 1,000 ML BOLUS ONE 11/29 1430 DC / IV 11/29 1529 1426 Results Pertinent Lab Results: Laboratory Tests 11/30 11/30 03/ 0630 0600 0325 Chemistry Sodium Pending Potassium Pending Chloride Pending Carbon Dioxide Pending Anion Gap Pending BUN Pending Creatinine Pending BUN/Creatinine Ratio Pending Lactic Acid (0.7 - 2.1 mmol/L) 1.5 Coagulation PT (9.4 - 12.5 SEC) 13.2 H INR (0.90 - 1.17) 1.26 H Hematology CBC w Diff Cancelled NO MAN DIFF REQ WBC (4.8 - 10.8 /CUMM) Cancelled 9.1 RBC (4.70 - 6.10 /CUMM) Cancelled 3.08 L Hgb (14.0 - 18.0 G/DL) Cancelled 8.9 L Hct (42 - 52 %) Cancelled 26.9 L MCV (80.0 - 94.0 FL) Cancelled 87.5 MCH (27.0 - 31.0 PG) Cancelled 29.1 RDW (11.5 - 14.5 %) Cancelled 15.0 H Plt Count (130 - 400 /CUMM) Cancelled 255 MPV (7.4 - 10.4 FL) Cancelled 8.8 Gran % (42.2 - 75.2 %) 67.3 Lymphocytes % (20.5 - 51.1 %) 23.2 Monocytes % (1.7 - 9.3 %) 7.1 Eosinophils % (0 - 5 %) 1.7 Basophils % (0.0 - 2.0 %) 0.7 Absolute Granulocytes (1.4 - 6.5 /CUMM) 6.1 Absolute Lymphocytes (1.2 - 3.4 /CUMM) 2.1 Absolute Monocytes (0.10 - 0.60 /CUMM) 0.6 Absolute Eosinophils (0.0 - 0.7 /CUMM) 0.2 Absolute Basophils (0.0 - 0.2 /CUMM) 0.1 PUBS MCHC (33.0 - 37.0 G/DL) Cancelled 33.3 11/29 11/29 1616 1420 Chemistry Sodium (137 - 145 mmol/L) 138 Potassium (3.5 - 5.1 mmol/L) 4.0 Chloride (98 - 107 mmol/L) 105 Carbon Dioxide (22 - 30 mmol/L) 22 Anion Gap (5 - 16) 12 BUN (9 - 20 mg/dL) 23 H Creatinine (0.7 - 1.2 mg/dL) 0.6 L Estimated GFR (>60 ml/min) > 60 BUN/Creatinine Ratio (7 - 25 %) 38.3 H Glucose (65 - 99 mg/dL) 118 H Lactic Acid Cancelled Calcium (8.4 - 10.2 mg/dL) 8.6 Magnesium (1.6 - 2.3 mg/dL) 2.0 Total Bilirubin (0.2 - 1.3 mg/dL) 0.3 AST (17 - 59 U/L) 25 ALT (21 - 72 U/L) 32 Alkaline Phosphatase (< 127 U/L) 52 Troponin I (<0.11 ng/ml) < 0.01 Total Protein (6.3 - 8.2 g/dL) 6.0 L Albumin (3.5 - 5.0 g/dL) 3.3 L Globulin (1.9 - 4.2 gm/dL) 2.7 Albumin/Globulin Ratio (1.1 - 2.2 %) 1.2 Amylase (30 - 110 U/L) < 30 L Lipase (23 - 300 U/L) 108 Hematology CBC w Diff NO MAN DIFF REQ WBC (4.8 - 10.8 /CUMM) 10.1 RBC (4.70 - 6.10 /CUMM) 2.84 L Hgb (14.0 - 18.0 G/DL) 8.3 L Hct (42 - 52 %) 25.1 L MCV (80.0 - 94.0 FL) 88.4 MCH (27.0 - 31.0 PG) 29.1 RDW (11.5 - 14.5 %) 15.3 H Plt Count (130 - 400 /CUMM) 282 MPV (7.4 - 10.4 FL) 8.5 Gran % (42.2 - 75.2 %) 73.9 Lymphocytes % (20.5 - 51.1 %) 17.4 L Monocytes % (1.7 - 9.3 %) 7.4 Eosinophils % (0 - 5 %) 0.6 Basophils % (0.0 - 2.0 %) 0.7 Absolute Granulocytes (1.4 - 6.5 /CUMM) 7.5 H Absolute Lymphocytes (1.2 - 3.4 /CUMM) 1.8 Absolute Monocytes (0.10 - 0.60 /CUMM) 0.7 H Absolute Eosinophils (0.0 - 0.7 /CUMM) 0.1 Absolute Basophils (0.0 - 0.2 /CUMM) 0.1 PUBS MCHC (33.0 - 37.0 G/DL) 32.9 L Imaging/Other Studies: 11/29/2016: EKG- ST @ 103, normal axis, early transition, NSST flattening. [No imaging studies done on admission].
--- NOTE | 2016-11-30 11:33 | NUR ---
PT LEFT FLOOR VIA STRETCHER TO GI.
--- NOTE | 2016-11-30 11:55 | Proc Note Gastroenterology ---
Gastroenterology Procedure Date of Last Colonoscopy: 06/29/2014 Procedure Date: 11/30/16 GI Procedure(s): Combined follow-up upper endoscopy to the third portion of the duodenum with biopsies, plus follow-up colonoscopy to the terminal ileum Sharepoint Developer: RIKI RAMIREZ MD ASA Classification: III Indications: INDX: (*Please refer to GI consult of 11/29/2016)- 71 y/o male, symptomatic anemia, questionable melena, history of aspirin and Aleve. 71-year-old male, HTN/hypoT4/ED/DJD/BL knee total arthroplasty/prostatectomy at [facility] 2012 for prostate Ca (*w/o RT or hormonal tx)/lap [facility] 04/13/02, post 06/29: screening colonoscopy to [facility] per Dr. Emily Kolb- sigmoid diverticula & non- bleeding rectal telangiectasias, left intact (follow up colonoscopy advised x 10 years)/BL IH repair at [facility] 01/2016, who presented to the [facility] 11/29/2016 with diarrhea after eating undercooked pierogies, which resolved 1 day [employer]MI[employer], followed by ? melena/dark liquid stool, with symptomatic anemia requiring transfusion. The patient had dark brown OB-positive stool on my digital exam of 11/29/2016. His BUN was not markedly elevated. History of aspirin and Aleve. He is currently on Protonix 40 mg IV BID. There is no family history of GI disease, GI malignancy, or inherited liver disease. Remote EGD in the reportedly "normal," per patient. Meds Received: O2-10L via NRB mask, plus MAC, as per [facility] Patient's Tolerance: good Complications: None Extent Reached: D3/TI Procedure: Combined follow-up upper endoscopy to the third portion of the duodenum with biopsies, plus follow-up colonoscopy to the terminal ileum, were performed with the Olympus high-definition video scopes from above and below, after obtaining informed consent from the patient for each procedure prior to IV sedation, with the mold carpenter and pulse oximeter, after 1 gallon of GoLYTELY, with the assistance of Dr. Norton, of [facility]. *Document photographs were obtained from above and below, and placed inside the front cover of the patient' s chart. Follow-up upper endoscopy to the third portion of the duodenum with biopsies, was performed with the Olympus high definition videoendoscope, after obtaining informed consent from the patient, with the mold carpenter and pulse oximeter, with the assistance of Dr. Norton, of [facility]. A mouthpiece was placed in the usual fashion to protect the patient's teeth. The patient was placed in the left lateral decubitus position and sedated by [facility]. At this point, the endoscope was advanced through the fenestrated hole in the NRB mask, into the mouth, then into the esophagus, using direct visualization technique. A brief inspection of the vocal cords was normal. The esophageal mucosa appeared normal. There were no esophageal rings, webs, lesions, strictures, or ulcers. There was no monilia or vesicles. There was no esophageal ribbing. The Z line was well demarcated at 33 cm, with a 2 cm hiatal hernia pouch, from 33-35 cm. There were no Leonel erosions. No significant esophageal inflammation was seen. There were no ectopic islands, nor gross Moore's esophagus. There were no esophageal or gastric varices, nor any Justina Pederson tear. The corbin of the stomach distended normally with air insufflation. Direct and retroflexed views of the stomach were performed. There was nothing endoscopically to suggest gastroparesis or portal gastropathy. *The mucosa of the gastric cardia was normal. The gastric fundus/posterior wall of the body was significant for a 1.5 cm symmetrical, clean-based, atypically located gastric ulcer, with heaped up edges, without any clot or visible vessel; periphery of gastric ulcer biopsied 5: (Specimen A). The remainder of the gastric fundus/posterior wall of the body was normal, as was the lesser curvature, incisura, and antrum. No additional gastric ulcers or gastric lesions were seen. There was no fresh or old blood seen endoscopically. The pylorus was patent, without any gastric outlet obstruction or channel ulcer. The duodenal bulb, duodenal sweep, and third portion of the duodenum appeared normal, including the ampulla, without any duodenal ulcers, distal ulcerations, or angiodysplasias. The folds of the second and third portions of the duodenum were normal in caliber, without any flattening, nodularity, scalloping, or mosaic pattern. No active upper GI bleeding was seen. The patient tolerated the procedure well. After completing the follow-up upper endoscopy to the third portion of the duodenum with biopsies, follow-up colonoscopy to the terminal ileum was performed with the Olympus high-definition video colonoscope, after obtaining informed consent from the patient, with the mold carpenter and pulse oximeter, after 1 gallon of GoLYTELY, with the assistance of Dr. Norton, of [facility]. The prep was very good. The patient was in the left lateral decubitus position throughout the procedure. Direct views of the rectum failed to reveal any external hemorrhoids, fissures, or perianal disease. Digital rectal exam was unremarkable, without any masses. Sphincter tone was normal. Retroflexion in the rectum failed to reveal any gross proctitis, rectal ulcers, or rectal lesions. There were some moderate internal hemorrhoids, without any active bleeding. The colonic mucosa was carefully inspected, both upon insertion and upon withdrawal of the colonoscope. Withdrawal time was certainly adequate. There were mild left-sided diverticula. There were no strictures. I did not appreciate any proximal diverticula. The cecum, base of the appendix, and ileocecal valve were all identified. The last 5 cm of the terminal ileum were entered, and appeared normal. Confirmatory photographs were obtained. The colonic mucosa appeared intact and within normal limits to the terminal ileum, without any polyps, lesions, gross colitis, ileitis, or angiodysplasias. No active lower GI bleeding was seen. The patient tolerated both procedures well. Impression: 1. 1.5 cm symmetrical, clean-based, atypically located gastric ulcer in gastric fundus/posterior wall of body, with heaped up edges, without any clot or visible vessel; periphery of gastric ulcer biopsied 5: (Specimen A). 2. Z line at 33 cm, with 2 cm hiatal hernia pouch, from 33-35 cm. 3. Mild left-sided diverticula. 4. Moderate internal hemorrhoids, without any active bleeding. 5. Normal colonic mucosa to the terminal ileum. [No active upper or lower GI bleeding seen. *The patient's symptomatic anemia and GI bleed was from the clean-based gastric ulcer in the proximal stomach, most likely, with the active component of the bleed being last week, [employer]]. Recommendations: Feed patient as tolerated. May switch to Protonix 40 mg po BID, 1/2 hour before breakfast & supper. Follow-up CBC daily as inpatient. No aspirin or NSAIDs. Await biopsies of proximal gastric ulcer. The patient was advised to call the office within 2 weeks for pathology results. Check stool antigen for H. pylori. The patient was advised to follow up with Dr. Emily Betancur in 2 months (i.e.- 2016), to reassess the proximal gastric ulcer via repeat EGD (assuming today's biopsies are benign), to ensure that it heals, as he was told that a small percentage of gastric ulcers can have a malignant potential. He should have follow-up CBC 1 week after discharge. Based on current average-risk for colon cancer screening guidelines, advise follow-up surveillance colonoscopy in 10 years (i.e.- 11/2026). Mobilize patient as tolerated. I anticipate the patient being discharged to home soon. Further inpatient GI follow up as needed. The above findings and recommendations were discussed with the patient and with Dr. Ramirez postoperatively. The patient has our office number. ADDENDUM: 12/03/2016- A. 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 NEGATIVE FOR INTESTINAL METAPLASIA. NEGATIVE FOR DYSPLASIA. GIEMSA STAIN IS NEGATIVE FOR HELICOBACTER ORGANISMS. Dictated by: KWESI JUDGE MD, I called the pt 12/03/2016 at 8:01 p.m. at [phone], regarding the benign bxs of the . He was D/C to home on 12/01/2016 with H/H 8.4/25.2 after 2u PRBC. Continue Protonix 40 mg po BID, 1/2 hour before breakfast & supper. Continue Fe BID. No aspirin or NSAIDs. Pt told to call office for stool antigen for H. pylori. The patient was advised to follow up with Dr. Emily Betancur in 2 months ( i.e.- 01/2017), to reassess the proximal gastric ulcer via repeat EGD to ensure that it heals, as he was told that a small percentage of gastric ulcers can have a malignant potential. He should have follow-up CBC 1 week after discharge. Based on current average-risk for colon cancer screening guidelines, advise follow-up surveillance colonoscopy in 10 years (i.e.- 11/2026). Follow-up Colonscopy Screening in 10 years (*F/U EGD to recheck 01/2017) CC: LUIS NUÑEZ,IRENE; TIM NUÑEZ,GIGI Sampson; MICHAEL NUÑEZ,CHRISTOS Solomon; LB NUÑEZ,RIKI; MARSHA NUÑEZ,CJ Collazo
--- NOTE | 2016-11-30 13:50 | NUR ---
PT ARRIVED TO FLOOR VIA STRETCHER FROM GI, AO, RA, OOB INDEPENDENTLY, NO C/O PAIN AT THIS TIME, CLEAR DIET ORDERED FOR PATIENT, WILL CONTINUE TO MONITOR.
[2016-11-30 14:20] VITALS: BP 132/74
--- NOTE | 2016-11-30 18:54 | Patient Discharge Instructions ---
Discharge Instructions General Discharge Information You were seen/treated for: Gastrointestinal bleed. Gastric ulcer found on endoscopy Anemia requiring a transfusion You had these procedures: Endoscopy and colonoscopy Watch for these problems: Persistent bloody stool. Abdominal pain. Dizziness, rapid heart rate, chest pain Special Instructions: 1. Please take all medications as directed. 2. Please follow-up with the target aircraft technician within 2 weeks for results on biopsy. 3. We have stopped aspirin and Aleve because these medications can cause worsening stomach ulcers/bleeding. 4. Please have blood work done in 1 week to follow-up on anemia and iron levels. Send results to your PCP and target aircraft technician Diet Continue normal diet: Yes Activity Full Activity/No Limits: Yes Acute Coronary Syndrome Inclusion Criteria At DC or during hospital stay patient has or had the following: ACS DIAGNOSIS No Discharge Core Measures Meds if any: Prescribed or Continued at Discharge Meds if any: NOT Prescribed or Continued at Discharge Congestive Heart Failure Inclusion Criteria At DC or during hospital stay patient has or had the following: CHF DIAGNOSIS No Discharge Core Measures Meds if any: Prescribed or Continued at Discharge Meds if any: NOT Prescribed or Continued at Discharge Cerebrovascular accident Inclusion Criteria At DC or during hospital stay patient has or had the following: CVA/TIA Diagnosis No Discharge Core Measures Meds if any: Prescribed or Continued at Discharge Meds if any: NOT Prescribed or Continued at Discharge Venous thromboembolism Inclusion Criteria VTE Diagnosis No VTE Type NONE VTE Confirmed by (Test) NONE Discharge Core Measures - Per Current guidelines, there needs to be overlap - treatment for the first 5 days of Warfarin therapy. - If discharged on Warfarin prior to 5 days of - overlap therapy, the patient will need to be - assessed for post discharge needs including - *Post discharge parental anticoagulation - *Warfarin and/or parental anticoagulation education - *Follow up date to check INR post discharge At least 5 days overlap therapy as Inpatient No Meds if any: Prescribed or Continued at Discharge Note: Overlap Therapy is Warfarin and Anticoagulant Meds if any: NOT Prescribed or Continued at Discharge
[2016-11-30] MEDS ORDERED: PROTONIX40 M3 PO (18:55)
[2016-11-30 22:07] VITALS: BP 120/70
[2016-12-01 06:25] VITALS: BP 158/82
--- NOTE | 2016-12-01 07:15 | PN- Housestaff ---
VENKAT NUÑEZ,[facility] 12/01/16 0715: Subjective Follow-up For: black tarry stool dizziness Subjective: I saw and examined the patient at bedside, he denies dizziness, abdominal pain, any further episodes of black tarry stool. He hasn't had any bowel movement since after colonoscopy, he has tolerated clear and full liquids. Denies any shortness of breath, chest pain or palpitations. He is waiting to go home. Review of Systems Constitutional: Denies: chills, fever. Cardiovascular: Reports: no symptoms. Respiratory: Reports: no symptoms. Gastrointestinal: Denies: abdominal pain, nausea, bloody stool, vomiting. Genitourinary: Reports: no symptoms. Musculoskeletal: Reports: no symptoms. Skin: Reports: no symptoms. Neurological/Psychological: Reports: no symptoms. Hematologic/Endocrine: Reports: no symptoms. Objective Last 24 Hrs of Vital Signs/I&O Vital Signs Date Time Temp Pulse Resp B/P Pulse O2 O2 Flow FiO2 Ox Delivery Rate 12/01 0625 98.0 99 20 158/82 95 Room Air 11/30 2207 98.2 63 20 120/70 96 11/30 1420 98.7 93 20 132/74 98 Room Air Intake & Output 12/01 1600 12/01 0800 12/01 0000 Intake Total 130 490 Output Total Balance 130 490 Intake, IV 10 10 Intake, Oral 120 480 Physical Exam General Appearance: Alert, Oriented X3, Cooperative, No Acute Distress Skin: No Significant Lesion HEENT: Atraumatic, EOMI Neck: Supple, No JVD Cardiovascular: Regular Rate, Normal S1, Normal S2, No Murmurs Lungs: Clear to Auscultation, Normal Air Movement Abdomen: Soft, No Tenderness Neurological: Normal Speech, Normal Tone Extremities: No Edema, Normal Pulses Current Medications: Current Medications Sig/Shahid Start time Last Medication Dose Route Stop Time Status Admin Acetaminophen 650 MG Q6P PRN 11/29 1615 AC PO Chlorhexidine 2 GM .STK-MED ONE 11/30 1337 DC Gluconate TOP 11/30 1338 Dextrose/Sodium 1,000 ML ONCE ONE 11/30 0100 DC 11/30 Chloride IV 11/30 2059 0517 Levothyroxine Sodium 0.112 MG DAILY AC 12/01 0700 AC 12/01 PO 0555 Levothyroxine Sodium 56 MCG DAILY 11/30 1000 DC 11/30 IV 1027 Omeprazole 40 MG BID 11/30 1413 AC 11/30 PO 2041 Oxycodone/ 1 TAB Q6P PRN 11/29 1615 AC Acetaminophen PO Oxycodone/ 2 TAB Q6P PRN 11/29 1615 AC Acetaminophen PO Pantoprazole Sodium 40 MG BID 11/29 2200 DC 11/30 IV 0905 Patient Medication 1 ED .STK-MED ONE 11/30 1427 OR Teaching ED 11/30 1428 Last 24 Hrs of Lab/Colin Results Last 24 Hrs of Labs/Mics: Laboratory Tests 12/01/16 0715: CBC w Diff Pending, WBC Pending, RBC Pending, Hgb Pending, Hct Pending, MCV Pending, MCH Pending, RDW Pending, Plt Count Pending, MPV Pending, PUBS MCHC Pending Assessment/Plan Assessment: 71-year-old gentleman with a PMH of hypothyroidism, hypertension, erectile dysfunction, chronic back pain who presents with complaints of abdominal discomfort, loose dark tarry stools and associated dizziness. He reported that he ate pierogi on evening that he had in the freezer for a few months. Family member did mention possibly were undercooked after he commented on how the dough tasted. He woke up on Wednesday morning with noticeable abdominal cramping/bloating with a sensation of diarrhea. He had approximately 5 episodes of loose black tarry stool on Wednesday with associated dizziness. Over the weekend he was able to tolerate a regular diet with intermittent episodes of abdominal cramping/bloating. He did have 2 other bowel movements on Wednesday evening with formed stool that was black in color. VS on admission: BP 126/66, HR 113, RR 22, SPO2 97% on RA, T 97.7 Pertinent Labs: H&H 8.3/25.1, sodium 138, potassium 4.0, BUN 23/0.6, glucose 118 Problem list and plan: Upper GI bleed, diarrhea -resolved Patient reports noticing black tarry stools for months now and worsening weakness. Upper and lower endoscopy was done today and reported a clear based gastric ulcer, biopsied 5. 2 cm hiatal hernia pouch. Mild left-sided diverticula. Moderate internal hemorrhoids, without any active bleeding. Normal colonic mucosa to the terminal ileum. Followed further GI recommendations. He will follow up outpatient with Dr. Cueva to follow up on biopsy results. Anemia, possibly due to GI blood loss - stable Patient felt dizzy, had orthostats + on admission, received 2 units of blood. H/ H 8.3/25.1 on admission. lactic acid: 1.5. NO dizziness reported today. * started ferrous sulfate 325 BID at discharge, instructed to take it with colace to void constipation and that his stool will darken with Iron. * repeat CBC in 1 week SIRS criteria on admission - resolved HR 113, RR 22. Likely secondary to GI blood loss. No fever, no leukocytosis, Cr : 0.6 HR 93, RR 20 after endoscopy, patient still reported tarry stools before colonoscopy. Hypertension * monitor BP, anti-hypertensives on hold due to low BP, resumed at diascharge. Hypothyroidism * continue 112 microgram daily Diet: started on clear liquid and will advance as tolerated DVT prophylaxis: ALPs in the setting of GI bleed CODE STATUS: Full code Problem List: 1. GI bleeding 2. Symptomatic anemia Pain Ratin Pain Location: No pain Pain Goal: Pain 4 or less Pain Plan: Tylenol for mild pain Tomorrow's Labs & Rationales: None RIKI ASHER MD 12/01/16 1610: Attending MD Review Statement Attending Statement Attending MD Statement: examined this patient, discuss w/resident/PA/HAULPAK DRIVER, agreed w/resident/PA/HAULPAK DRIVER, reviewed EMR data (avail), discussed with nursing, discussed with case mgmt, amended to note Attending Assessment/Plan: The patient was seen and discussed with house staff. Agree with the plan of care as outlined. OK to discharge to home today.
[2016-12-01 08:25] LABS: ABSOLUTE BASOPHIL COUNT 0 /CUMM (0.0-0.2); ABSOLUTE EOSINOPHIL COUNT 0.4 /CUMM (0.0-0.7); ABSOLUTE GRANULOCYTE CT 5.5 /CUMM (1.4-6.5); ABSOLUTE LYMPH COUNT 1.9 /CUMM (1.2-3.4); ABSOLUTE MONOCYTE COUNT 0.6 /CUMM (0.10-0.60); BASOPHIL % 0.5 % (0.0-2.0); EOSINOPHIL % 4.6 % (0-5); GRANULOCYTE % 65.4 % (42.2-75.2); HEMATOCRIT 25.2 % (42-52); MEAN CORPUSCULAR HGB 29.3 PG (27.0-31.0); MEAN CORPUSCULAR HGB CONC 33.3 G/DL (33.0-37.0); MEAN CORPUSCULAR VOLUME 88.2 FL (80.0-94.0); MEAN PLATELET VOLUME 8.6 FL (7.4-10.4); PLATELET COUNT 254 /CUMM (130-400); RBC DISTRIBUTION WIDTH 15.8 % (11.5-14.5); RED BLOOD CELL CT 2.86 /CUMM (4.70-6.10); WHITE BLOOD CELL COUNT 8.4 /CUMM (4.8-10.8)
--- NOTE | 2016-12-01 08:28 | Discharge Summary ---
Visit Information Visit Dates Admission Date: 11/29/16 Discharge Date: 12/01/16 Hospital Course Course Attending Physician: RIKI RAMIREZ MD Primary Care Physician: TIM NUÑEZ,GIGI Sampson Hospital Course: Patient is a 71-year-old gentleman with a PMH of hypothyroidism, hypertension, erectile dysfunction, chronic back pain who presented with complaints of abdominal discomfort, 5 episodes of loose dark tarry stools and associated dizziness over the past 2 days before admission. Patient reported he has been having dark stools and dizziness for months which became worse after a recent episode of food poisoning accompanied by abdominal cramping and bloating. He had approximately 5 episodes of loose black tarry stools before admission. Patient was admitted to general medicine floor and the following were addressed during his hospital stay. Upper GI bleed, most likely due to peptic ulcer disease Patient reported black tarry stools for months with worsening weakness and dizziness. Upper and lower endoscopy were performed and reported a clear based gastric ulcer which was biopsied, also there was a 2 cm hiatal hernia pouch, mild left-sided diverticula, moderate internal hemorrhoids, without any active bleeding and normal colonic mucosa to the terminal ileum. Patient reported no further episodes of back stool after starting diet post- colonoscopy. He received IV protonix and is discharged on 40 mg daily PO pantoprazole. * He will see Dr. Kolb in the office to follow up on biopsy results and stool H.Pylori antigen test Anemia, possibly due to chronic GI blood loss Patient felt dizzy, had orthostats + on admission, received 2 units of blood. H/ H 8.3/25.1 on admission. lactic acid: 1.5. Dizziness resolved after transfusion. We started ferrous sulfate 325 BID at discharge, instructed to take it with colace to void constipation and that his stool will darken with Iron. Stopped aspirin and Naproxen is his medication list and advised not to take any NSAIDs. * Patient will repeat CBC in 1 week and copy PCP and GI Hypertension We monitored BP, anti-hypertensives were kept on hold due to low BP, which were resumed at discharge. Hypothyroidism We continued home dose, first at 56 mcg IV while NPO and switched to 112 mcg daily after starting diet. Diet He was first kept NPO for EGD and colonoscopy and we advanced his diet gradually to regular diet on the discharge day, tolerated food well. DVT prophylaxis: ALPs in the setting of GI bleed CODE STATUS: Full code Allergies: Coded Allergies: No Known Allergies (11/29/16) Significant Procedures: Date of Last Colonoscopy: 06/29/2014 Procedure Date: 11/30/16 GI Procedure(s): Combined follow-up upper endoscopy to the third portion of the duodenum with biopsies, plus follow-up colonoscopy to the terminal ileum Impression: 1. 1.5 cm symmetrical, clean-based, atypically located gastric ulcer, with heaped up edges, without any clot or visible vessel; periphery of gastric ulcer biopsied 5: (Specimen A). 2. Z line at 33 cm, with 2 cm hiatal hernia pouch, from 33-35 cm. 3. Mild left-sided diverticula. 4. Moderate internal hemorrhoids, without any active bleeding. 5. Normal colonic mucosa to the terminal ileum. No active upper or lower GI bleeding seen. *The patient symptomatic anemia and GI bleed was from the clean-based gastric ulcer in the proximal stomach, most likely, with the active component of the bleed being last week, [employer]. Recommendations: Feed patient as tolerated. May switch to Protonix 40 mg po BID, 1/2 hour before breakfast & supper. Follow-up CBC daily as inpatient. No aspirin or NSAIDs. Await biopsies of proximal gastric ulcer. The patient was advised to call the office within 2 weeks for pathology results. Check stool antigen for H. pylori. The patient was advised to follow up with Dr. Emily Betancur in 2 months (i.e.- 2016), to reassess the proximal gastric ulcer via repeat EGD (assuming today's biopsies are benign), to ensure that it heals, as he was told that a small percentage of gastric ulcers can have a malignant potential. He should have follow-up CBC 1 week after discharge. Based on current average-risk for colon cancer screening guidelines, advise follow-up surveillance colonoscopy in 10 years (i.e.- 11/2026). Mobilize patient as tolerated. I anticipate the patient being discharged to home soon. Further inpatient GI follow up as needed. The above findings and recommendations were discussed with the patient and with Dr. Ramirez postoperatively. The patient has our office number. Follow-up Colonscopy Screening in 10 years (*F/U EGD to recheck 01/2017) CC: LUIS NUÑEZ,MANI DUMONT MD,GIGI RODRIGUEZ MD,CHRISTOS Solomon; LB NUÑEZ,RIKI; MARSHA NUÑEZ,CJ Collazo DICTATED BY: KONRAD NUÑEZ,SAMEER Alvarez DATE/TIME DICTATED:11/30/161144 IMPORT/EXPORT ADMINISTRATOR:KASSI DATE/TIME TRANSCRIBED:11/30/161144 REPORT NUMBER:[id number] Pertinent Lab Results: 11/30/16 0325: Lactic Acid 1.5, PT 13.2 H, INR 1.26 H, CBC w Diff NO MAN DIFF REQ, RBC 3.08 L, MCV 87.5, MCH 29.1, RDW 15.0 H, MPV 8.8, Gran % 67.3, Lymphocytes % 23.2, Monocytes % 7.1, Eosinophils % 1.7, Basophils % 0.7, Absolute Granulocytes 6.1, Absolute Lymphocytes 2.1, Absolute Monocytes 0.6, Absolute Eosinophils 0.2, Absolute Basophils 0.1, PUBS MCHC 33.3 11/29/16 1420: Anion Gap 12, Estimated GFR > 60, BUN/Creatinine Ratio 38.3 H, Glucose 118 H, Calcium 8.6, Magnesium 2.0, Total Bilirubin 0.3, AST 25, ALT 32, Alkaline Phosphatase 52, Troponin I < 0.01, Total Protein 6.0 L, Albumin 3.3 L, Globulin 2.7, Albumin/Globulin Ratio 1.2, Amylase < 30 L, Lipase 108, CBC w Diff NO MAN DIFF REQ, RBC 2.84 L, MCV 88.4, MCH 29.1, RDW 15.3 H, MPV 8.5, Gran % 73.9, Lymphocytes % 17.4 L, Monocytes % 7.4, Eosinophils % 0.6, Basophils % 0.7, Absolute Granulocytes 7.5 H, Absolute Lymphocytes 1.8, Absolute Monocytes 0.7 H, Absolute Eosinophils 0.1, Absolute Basophils 0.1, PUBS MCHC 32.9 L Disposition Summary Disposition Principal Diagnosis: Upper GI bleeding, peptic ulcer disease, chronic blood loss anemia Additional Diagnosis: History of hypothyroidism, hypertension, erectile dysfunction, chronic back pain Discharge Disposition: home or self care Discharge Instructions General Discharge Information Code Status: Full Code Patient's Diet: Regular diet Patient's Activity: as tolerated Follow-Up Instructions/Appts: 1. Please take all medications as directed. 2. Please follow-up with the crutch maker within 2 weeks for results of the stomach biopsy. 3. We have stopped aspirin and Aleve because these medications can cause worsening stomach ulcers/bleeding. 4. Please have blood work done in 1 week to follow-up on anemia and iron levels. Send results to your PCP and crutch maker Medications at Discharge Discharge Medications: Stop taking the following medications: Aspirin (Aspirin*) 81 MG TAB.CHEW ORAL DAILY Naproxen Sodium (Aleve) 220 MG TABLET ORAL DAILY Continue taking these medications: Lisinopril/Hydrochlorothiazide (Lisinopril-Hctz 20-12.5 MG Tab) 20 MG-12.5 MG TABLET 1 Tablet ORAL DAILY Qty = 90 Comments: NOT GIVEN IN HOSPITAL Levothyroxine Sodium (Levothyroxine Sodium) 112 MCG TABLET 1 Tablet ORAL DAILY BEFORE BREAKFAST Qty = 90 Comments: Last Taken:12/01/16 Time:6 AM Docusate Sodium (Colace) 100 MG CAPSULE 2 Capsule ORAL TWICE DAILY Comments: NOT GIVEN IN HOSPITAL Tadalafil (Cialis) 20 MG TABLET 1 Tablet ORAL DAILY as needed for UNKNOWN Qty = 10 Comments: NOT GIVEN IN HOSPITAL Acetaminophen (Tylenol Extra Strength) 500 MG TABLET 2 Tablet ORAL Every night as needed as needed for PAIN Start taking the following new medications: Pantoprazole Sodium (Protonix) 40 MG TABLET.DR 1 Tablet ORAL DAILY Qty = 60 No Refills Instructions: Please take one tablet 30 minutes before breakfast and dinner Comments: Last Taken:12/01/16 Time:9 AM Ferrous Sulfate (Ferrous Sulfate) 325 MG (65 MG IRON) TABLET 1 Tablet ORAL TWICE DAILY Qty = 60 No Refills Copies To: TIM NUÑEZ,GIGI Sampson; KONRAD NUÑEZ,SAMEER Alvarez; MARSHA NUÑEZ,CJ Collazo Attending MD Review Statement Documenting Attending: RIKI RAMIREZ MD Other Findings: The patient was seen and discussed with house staff. Agree with the plan of care as outlined. OK for discharge home.
[2016-12-01] MEDS ORDERED: FERROUS SULFAT325 M3 PO ×2 (10:36→12:21)
== END 2016-12-01 13:30 | DRG 379 ==
LOC: ENRESERVDT → ENRESERVTM → ERH 13:49 → 2NA 14:59 → ERHI 14:59 → ENPENDDIS 14:59 → 2NA 16:59
PROVIDERS: Emergency Medicine; Internal Medicine; Ophthalmology; ADMIT Internal Medicine
PROC: 30233N1 Transfusion of Nonautologous Red Blood Cells into Peripheral Vein, Percutaneous Approach (ICD-10-PCS; principal; 2016-11-29)
PROC: 0DB68ZX Excision of Stomach, Via Natural or Artificial Opening Endoscopic, Diagnostic (ICD-10-PCS; 2016-11-30)
PROC: 0DJD8ZZ Inspection of Lower Intestinal Tract, Via Natural or Artificial Opening Endoscopic (ICD-10-PCS; 2016-11-30)
DX: K92.2 Gastrointestinal hemorrhage, unspecified (principal); I10 Essential (primary) hypertension; E66.9 Obesity, unspecified; Z68.37 Body mass index [BMI] 37.0-37.9, adult; E03.9 Hypothyroidism, unspecified; K25.4 Chronic or unspecified gastric ulcer with hemorrhage; D50.0 Iron deficiency anemia secondary to blood loss (chronic); K44.9 Diaphragmatic hernia without obstruction or gangrene; K64.8 Other hemorrhoids
CPT/HCPCS: 2NASP; 36415; 82436; 86920; 87328; 87329; 88305; 88312; 93005; 93010; 96365; P9016